=== PATIENT | male | born 1950 | race Caucasian/White ===

== ENCOUNTER 2017-12-29 08:49 | Day surgery (SDC) | payer MEDICARE, OTHER ==
[2017-12-29] MEDS: Lactated Ringers 1,000 ML IV SCH (09:30)
[2017-12-29] MEDS ORDERED: Propofol 200 MG/20 ML SDV ONE ×2 (10:57→11:09)
[2017-12-29] MEDS ORDERED: fentaNYL 100 MCG/2 ML SDV ONE (10:58)
--- NOTE | 2017-12-29 12:02 | OR ---
DATE OF SURGERY: 12/29/2017. REFERRING PROVIDER: Vitaly Babb MD. PRE-OPERATIVE DIAGNOSIS: Screening colonoscopy. The patient states last colonoscopy was greater than 10 years ago and was normal. There is a positive family history of colon polyps in a brother and sister. POST-OPERATIVE DIAGNOSIS: Normal colonoscopy. PROCEDURE: Colonoscopy. SURGEON: Toan Sapp M.D. ANESTHESIA: Monitored anesthesia care. BOWEL PREP: Good. Jack is a 67-year-old male who was brought to the endoscopy suite after discussing risks and benefits of the procedure. Informed consent was obtained for conscious sedation and colonoscopy with or without biopsy and/or polypectomy. We also discussed possibility of missed lesions. Pre-procedure exam was unremarkable. IV, oxygen, and monitors were placed. The patient was placed in the left lateral decubitus position. Sedation was administered and a digital rectal exam was performed which was unremarkable. Colonoscope was passed into the rectum and slowly advanced all the way to the cecum. Cecum was viewed and photographed. The colonoscope was slowly withdrawn and the mucosa was closed observed in a direct circumferential manner. The ascending colon was unremarkable. The transverse colon was unremarkable. The descending colon was unremarkable. The sigmoid colon was unremarkable. Retroflexion was performed and rectal mucosa was unremarkable. Scope was removed. The patient tolerated the procedure well. The patient was monitored until that baseline status. Discharge instructions were reviewed and the patient was discharged in good condition. COMPLICATIONS: None. TOTAL TIME: 15 minutes. ESTIMATED BLOOD LOSS: None. RECOMMENDATIONS/FOLLOW-UP: The patient has normal colon; however, there is a positive family history of polyps in brother and sister, which places him at a slightly higher risk. Would recommend repeating colonoscopy in 7 to 8 years given this slight increased risk. I would like to kindly thank Dr. Babb for this referral. DMB: 12/29/2017 11:28:19 MODL: 12/29/2017 11:57:14 /[id number]
== END 2017-12-29 14:00 | disposition home or self-care (01) ==
LOC: VM.SDS 08:49
PROVIDERS: ATTEND Family Medicine
DX: Z12.11 Encounter for screening for malignant neoplasm of colon (principal); E78.5 Hyperlipidemia, unspecified; N40.1 Benign prostatic hyperplasia with lower urinary tract symptoms; R03.0 Elevated blood-pressure reading, without diagnosis of hypertension; Z83.71 Family history of colonic polyps
CPT/HCPCS: J2704; J3010; J7120